=== PATIENT | male | born 1975 | race Two or more races ===

== ENCOUNTER 2025-04-02 22:12 | Emergency (ER) | payer MEDICAID, SELFPAY ==
[2025-04-02 22:12] VITALS: BMI 40.3
[2025-04-02 23:03] VITALS: BP 167/84; PULSE 88; RESP 18; TEMP 37.2; O2SAT 96
--- NOTE | 2025-04-02 23:04 | XR_ITS ---
Examination: Wrist, left 3 views Technique: Wrist AP, oblique, lateral 3 views Date and time of exam: April 02, 2025, 11:11 PM Indications: Patient fell the night with injury to the wrist, wrist pain Findings: No acute fracture On the AP view there is abnormal widening between the navicular and the lunate, and the normal articulation of the capitate and lunate is now seen Impression: Suspicious for carpal subluxation, recommend MRI wrist without contrast follow-up
--- NOTE | 2025-04-02 23:34 | EDNOTE_ITS ---
Upper Extremity Injury RME/HPI General Chief Complaint: Hand/Wrist Problems Stated Complaint: L WRIST INJURY Time Seen by Provider: 04/02/25 23:22 Arrival date/time: 04/02/25 22:12 This is a case of 50-year-old male with no medical history came in in the emergency room due to left wrist injury history of present illness started 1 hour prior to arrival in the emergency room when the patient tripped and fell at home in a carpet left wrist to stop falling sustaining pain and swelling due to worsening of the symptoms this patient decided to sought consult here in the emergency room denies any head neck chest or abdominal injury Limitations: no limitations Related Data Home Medications ?Medication ?Instructions ?Recorded ?Confirmed adalimumab 40 mg/0.8 mL 40 mg subcut Q14D 10/12/19 0 03/08/23 subcutaneous pen kit (Humira Pen) Held on 03/10/23. Instructions: Resume on 03/17/23. Hold humira until finish antibiotics for skin infection Previous Rx's ?Medication ?Instructions ?Recorded cephalexin 500 mg capsule 500 mg PO BID #14 caps 03/10 doxycycline hyclate 100 mg capsule 100 mg PO BID #14 c aps 03/10/23 ibuprofen 800 mg tablet 800 mg PO Q8H PRN pain #20 t abs 04/02/25 Allergies Allergy/AdvReac Type Severity Reaction Status Date / Time No Known Allergies Allergy Verified 04/02/25 22:15 Review of Systems Review of Systems Systems Reviewed: All systems reviewed, normal except as documented Constitutional Constitutional: Reports system reviewed and no additional complaints, except as documented and Reports as per HPI Cardiovascular Cardiovascular: Reports system reviewed and no additional complaints, except as documented and Reports as per HPI Respiratory Respiratory: Reports system reviewed and no additional complaints, except as documented and Reports as per HPI Gastrointestinal Gastrointestinal: Reports system reviewed and no additional complaints, except as documented and Reports as per HPI Musculoskeletal Musculoskeletal: Reports system reviewed and no additional complaints, except as documented and Reports other (Left wrist pain) Neurologic Neurologic: Reports system reviewed and no additional complaints, except as documented and Reports as per HPI Past Medical History Past Medical History NEUROLOGIC: Negative Neurological Disorders or Seizures CARDIAC: Negative Cardiac Disorders or Congestive Heart Failure RESPIRATORY: Negative Chronic Obstructive Pulmonary Disease (COPD) GASTROINTESTINAL: Negative Gastrointestinal Disorders GENITOURINARY: Negative Genitourinary Disorders or Renal Disease MUSCULOSKELETAL: Negative Musculoskeletal Disorders ENDOCRINE: Negative Endocrine Disorders, Diabetes Mellitus Type 1 or Diabetes Mellitus Type 2 HEMATOLOGIC: Negative Blood Disorders OTHER HISTORY: Positive Autoimmune Disease, MRSA and Chicken Pox; Negative Blood Transfusions, Blood Transfusion Reaction or Cancer Surgical History SURGICAL: Negative Cardiac Surgery, Endocrine Surgery, Ear Surgery, Eye Surgery, Nose Surgery, Abdominal Surgery, Joint Replacement or Neurologic Surgery Social History SMOKING STATUS: Never smoker ED Exam General Limitations: Present no limitations General appearance: Present alert, in no apparent distress and other (Patient is awake alert oriented not in distress nontoxic looking well-hydrated well- nourished) Head Head exam: Present atraumatic, normocephalic and normal inspection Eye Eye exam: Present normal appearance, PERRL and EOMI ENT ENT exam: Present normal exam, normal oropharynx and mucous membranes moist Neck Neck exam: Present normal inspection, full ROM and trachea midline; Absent tenderness, meningismus, lymphadenopathy or thyromegaly Chest Chest inspection: Present normal inspection and symmetric chest wall rise; Absent tenderness Respiratory Respiratory exam: Present normal lung sounds bilaterally; Absent respiratory distress, wheezes, stridor, accessory muscle use or prolonged expiratory phase Cardiovascular Cardiovascular exam: Present regular rate, normal rhythm and normal heart sounds; Absent bradycardia, tachycardia, irregular rhythm, systolic murmur or diastolic murmur Abdominal Exam Abdominal exam: Present soft and normal bowel sounds Extremities Exam Extremities exam: Present normal inspection and full ROM Expanded Upper Extremity Exam Shoulder exam: Present normal inspection and full ROM; Absent tenderness or swelling Arm exam: Present normal inspection and full ROM; Absent tenderness or swelling Elbow exam: Present normal inspection and full ROM; Absent tenderness or swelling Forearm/Wrist exam: Present tenderness, swelling and other (Noted moderate tend erness on the left dorsal wrist with mild swelling no crepitation no deformity no redness no cellulitis ROM limited due to pain pulses were full and equal capillary refill less than 2 seconds sensory intact); Absent abrasion, laceration, ecchymosis, deformity, crepitus, dislocation, erythema, tenderness over anatomical snuff box or pain with axial thumb loading Hand exam: Present normal inspection, full ROM and other (No snuffbox tenderness); Absent tenderness or swelling Back Exam Back exam: Present normal inspection and full ROM Neurological Exam Neurological exam: Present alert, oriented X3, CN II-XII intact, normal gait and reflexes normal; Absent motor sensory deficit Psychiatric Psychiatric exam: Present normal affect and normal mood Skin Skin exam: Present warm, dry, intact and normal color Course Quality Measures none Orders Category Date Time Status XR wrist comp LT min 3V Stat Exams 04/02/25 23:04 Taken HYDROcodone*/APAP 5/325 [[place] 5/325] Med 04/02/25 23:28 Discontinued 1 tab PO X1 ONE Vital Signs Vital signs: Vital Signs Temperature 99 F 04/02/25 23:03 Pulse Rate 88 04/02/25 23:03 Respiratory Rate 18 04/02/25 23:03 Blood Pressure 167/84 H 04/02/25 23:03 Pulse Oximetry (%) 96 04/02/25 23:03 Oxygen Delivery Method Room Air 04/02/25 23:03 Oxygen saturation is 96% in room air Extremity Injury MDM Narrative MDM Narrative:: This is a case of 50-year-old male with no medical history came in in the emergency room due to left wrist injury history of present illness started 1 hour prior to arrival in the emergency room when the patient tripped and fell at home in a carpet left wrist to stop falling sustaining pain and swelling due to worsening of the symptoms this patient decided to sought consult here in the emergency room denies any head neck chest or abdominal injury physical examinati on patient is awake alert oriented not in distress nontoxic looking moderate tenderness and swelling on the left dorsal wrist no crepitation no deformity no redness no cellulitis ROM limited due to pain pulses were full and equal capillary refill less than 2 seconds sensory is in the x-ray showed a distal radial fracture left wrist splint was applied on the left wrist and sling patient tolerated well neurovascular intact RICE treatment will continue by the patient at home ice pack every 2 hours for 20 minutes for 24 hours then alternate with warm compress elevate the left wrist to decrease the swelling and keep the splint and sling in place until cleared by your primary care physician he was advised to follow-up with PCP and to be referred to orthopedic surgeon for further evaluation and treatment of distal radial fracture for any worsening symptoms or any emergent concern return precaution in the ER was advised patient was prescribed with EpiPen for pain Patient data External records reviewed:: [facility] previous records Clinical information provided by:: patient and family Social determinants that could affect healthcare access:: none Patient has the following chronic illnesses:: None How is presenting disease/condition affected by chronic disease/condition?: no chronic disease Evaluation data The following diagnostics were reviewed and interpreted by me:: radiology exam(s) Lab and/or radiology exams considered but not ordered:: Reviewed Interpretation Summary: Reviewed Medications / Prescriptions Medications or Prescriptions considered but not ordered:: Given Medication administrations:: Medication Administration History Discontinued Medications Hydrocodone Bitart/Acetaminophen (Hydrocodone/[place] 5/325 Tablet) 1 tab PO X1 ONE Stop: 04/02/25 23:29 Given Consultations Consultation(s) initiated? (list below): No Diagnosis Upper Extremity Injury Differential Diagnosis: sprain and strain of wrist and other (Wrist fracture) Most likely diagnosis given after review of the tests above:: Distal radial fracture Admission Indicated Admission indicated?: not indicated Explain why admission is indicated or not indicated:: Not indicated Admission Request Was there a request for admission?: No Admission Attestation Admission request attestation: Not indicated Disposition Plan Disposition Plan: Discharge Discharge Attestation Discharge Attestation: The patient and all family members were given an opportunity to ask questions and understood the discharge instructions. Discharge instructions specifically effects, indications for sooner follow up or return to the emergency department, and the expected course of current diagnosis. Patient condition: Stable Discharge Plan Plan Patient Disposition: HOME (Self Care) Patient condition on transfer: Stable Prescriptions/Referrals Prescriptions/Med Rec: New ibuprofen 800 mg tablet 800 mg PO Q8H PRN (Reason: pain) Qty: 20 0RF No Action Humira Pen 40 mg/0.8 mL Pen Injector Kit 40 mg SUBCUT Q14D doxycycline hyclate 100 mg capsule 100 mg PO BID Qty: 14 0RF cephalexin 500 mg capsule 500 mg PO BID Qty: 14 0RF Referrals: Juanjo Strickland MD [Physician] - 04/03/25 (For further evaluation and treatment of distal radial fracture and left wrist) Problem List Clinical Impression: Closed fracture of distal end of left radius Patient/Caregiver Discharge Instructions Education Materials: Wrist Fracture, ED Splint Care, Plaster, ED Fracture, Wrist, General, ED RICE Additional Instructions: Follow-up with your primary care physician in 2 days for reevaluation and to be referred to orthopedic surgeon for further evaluation and treatment of distal radial fracture left wrist worsening symptoms or any emergent concerns such as numbness weakness tingling sensation call 911 or go to the nearest emergency room ice pack every 2 hours for 20 minutes 4 to 24 hours then alternate with warm compress is advised elevate to decrease swelling keep the splint and sling in place until cleared by your primary care physician take Motrin Tylenol for pain Print Language: Ethiopian Stand Alone Forms: Sheryl Award Info., Work/School Release, Patient Portal Info Letter PA/STRATEGIC COMMUNICATIONS SPECIALIST Supervising Physician PA/STRATEGIC COMMUNICATIONS SPECIALIST Supervising Physician: dr sexton
[2025-04-03] MEDS: HYDROcodone/APAP 5/325 TABLET 1 TAB PO
== END 2025-04-03 00:04 | disposition home or self-care (01) ==
LOC: SERX 04-03 00:09
PROVIDERS: Emergency Provider Emergency Medicine; PCP Family Medicine
DX: S52.502A Unspecified fracture of the lower end of left radius, initial encounter for closed fracture (principal); W01.0XXA Fall on same level from slipping, tripping and stumbling without subsequent striking against object, initial encounter
CPT/HCPCS: 29125; 73110; 99283; A9270